=== PATIENT | female | born 1935 | race African-American/Black ===

== ENCOUNTER 2016-06-10 17:10 | Emergency (ER) | payer OTHER, MEDICAID ==
[~2016-06-10] VITALS: Ht 167.6 cm; Wt 55.0 kg
[~2016-06-10 17:10] MED LIST: ASPI-1035
[2016-06-10 17:43] VITALS: BP 136/79
== END 2016-06-10 19:03 | disposition home or self-care (01) ==
LOC: ER 17:11
DX: R03.0 Elevated blood-pressure reading, without diagnosis of hypertension (principal); F03.90 Unspecified dementia, unspecified severity, without behavioral disturbance, psychotic disturbance, mood disturbance, and anxiety; I10 Essential (primary) hypertension; Z79.82 Long term (current) use of aspirin
CPT/HCPCS: 99283

== ENCOUNTER 2021-05-24 10:54 | Emergency (ER) | payer OTHER, MEDICAID ==
[~2021-05-24] VITALS: Ht 165.1 cm; Wt 60.0 kg
[2021-05-24] MEDS ORDERED: ASPIRIN 81MG TABLET PO ONE (12:00)
[2021-05-24 12:33] LABS: EOSINOPHILS % 1.9 % (0.0-5.0); HEMOGLOBIN. 11.4 g/dL (12.0-16.0); MEAN CORPUSCULAR HEMOGLOBIN 29.8 pg (28.0-32.0); MEAN CORPUSCULAR VOLUME 88.8 fL (81.0-99.0); MONOCYTES % 11.4 % (2.0-8.0); NEUTROPHILS % 67.7 % (40.0-76.0); PLATELET 190 x1000/uL (130-400); RED BLOOD CELL COUNT 3.83 mill/uL (4.2-5.4); RED CELL DISTRIBUTION WIDTH 13.8 % (11.6-14.6)
[2021-05-24 12:41] LABS: CHLORIDE 106 mEq/L (98-107)
[2021-05-24] MEDS ORDERED: HALOPERIDOL LACTATE 5MG/ML VIAL IM ONE (16:45)
[2021-05-24 19:18] VITALS: BP 142/74
== END 2021-05-24 19:19 | disposition short-term general hospital (02) ==
LOC: ER 11:05 → CANBEDREQ 20:45
DX: R55 Syncope and collapse (principal); S09.8XXA Other specified injuries of head, initial encounter; X58.XXXA Exposure to other specified factors, initial encounter; Y93.89 Activity, other specified; Y92.9 Unspecified place or not applicable; E78.5 Hyperlipidemia, unspecified; I10 Essential (primary) hypertension; F03.90 Unspecified dementia, unspecified severity, without behavioral disturbance, psychotic disturbance, mood disturbance, and anxiety; R94.31 Abnormal electrocardiogram [ECG] [EKG]; Z82.49 Family history of ischemic heart disease and other diseases of the circulatory system; Z20.822 Contact with and (suspected) exposure to COVID-19
CPT/HCPCS: 36415; 70450; 71045; 72125; 80053; 80061; 83880; 84484; 85025; 87426; 93005; 96372; 99285; J1630

== ENCOUNTER 2022-03-02 06:55 | Inpatient (IN) | payer OTHER, MEDICAID ==
[~2022-03-02] VITALS: Ht 152.4 cm; Wt 44.1 kg
[2022-03-02] MEDS ORDERED: ACETAMINOPHEN 325MG TABLET PO STA (07:04)
[2022-03-02] MEDS ORDERED: ONDANSETRON HCL 4MG/2ML INJ IV ONE (07:15)
[2022-03-02] MEDS ORDERED: SODIUM CHLORIDE 0.9% 1,000 ML IV ONE (07:15)
[2022-03-02 08:32] LABS: HEMATOCRIT. 32.4 % (36.0-48.0); MEAN CORPUSCULAR HEMOGLOBIN 29.6 pg (28.0-32.0); MEAN CORPUSCULAR VOLUME 87.1 fL (81.0-99.0); MEAN PLATELET VOLUME 7.7 fl (7.4-10.4); PLATELET 222 x1000/uL (130-400); RED BLOOD CELL COUNT 3.72 mill/uL (4.2-5.4); RED CELL DISTRIBUTION WIDTH 14.4 % (11.6-14.6)
[2022-03-02 08:40] LABS: CHLORIDE 99 mEq/L (98-107)
[2022-03-02] MEDS ORDERED: POTASSIUM CHLORIDE 20MEQ TABLET SR PO NR (09:15)
[2022-03-02] MEDS ORDERED: SODIUM CHLORIDE 0.9% 1000ML BAG (SEPSIS BOLUS) IV ONE (09:15)
[2022-03-02] MEDS ORDERED: PIPERACILLIN/TAZ 3.375G PREMIX 50 ML IV NR (09:15)
[2022-03-02 10:17] LABS: PLATELET ESTIMATE NORMAL
[2022-03-02] MEDS ORDERED: POTASSIUM CHLORIDE 20MEQ/PACKET PO ONE (10:45)
[2022-03-02 12:44] LABS: INR 1.2; PROTHROMBIN TIME 12.4 sec (9.6-11.0)
[2022-03-02 13:18] LABS: CLARITY URINE CLEAR (CLEAR); COLOR URINE YELLOW (YELLOW); KETONES URINE NEGATIVE (NEGATIVE); LEUKOCYTE ESTERASE URINE 2+ (NEGATIVE); NITRITE URINE POSITIVE (NEGATIVE); OCCULT BLOOD URINE 2+ (NEGATIVE); PROTEIN URINE TRACE (NEGATIVE); SPECIFIC GRAVITY URINE 1.009 (1.005-1.030)
[2022-03-02] MEDS ORDERED: ONDANSETRON HCL 4MG/2ML INJ IV PRN (17:45)
[2022-03-02] MEDS ORDERED: ACETAMINOPHEN 325MG TABLET PO PRN (17:45)
[2022-03-02] MEDS: CEFTRIAXONE 1 G PREMIX 50 ML IV SCH ×2 (18:36→19:31)
[2022-03-02] MEDS ORDERED: IOHEXOL-300 100 ML BOTTLE ONE (18:51)
[2022-03-02 21:00] VITALS: BP 100/58
[2022-03-03] VITALS: BP 108/73
[2022-03-03 04:00] VITALS: BP 115/61
[2022-03-03] MEDS ORDERED: ONDANSETRON HCL 4MG TABLET PO PRN (04:30)
[2022-03-03] MEDS ORDERED: SODIUM CHL 0.45% + KCL 20MEQ/L 1,000 ML IV SCH (04:30)
[2022-03-03 07:09] LABS: HEMATOCRIT. 30.6 % (36.0-48.0); HEMOGLOBIN. 10.2 g/dL (12.0-16.0); MEAN CORPUSCULAR HEMOGLOBIN 28.5 pg (28.0-32.0); MEAN CORPUSCULAR VOLUME 85.8 fL (81.0-99.0); MEAN PLATELET VOLUME 7.9 fl (7.4-10.4); PLATELET 219 x1000/uL (130-400); RED BLOOD CELL COUNT 3.57 mill/uL (4.2-5.4); RED CELL DISTRIBUTION WIDTH 14.5 % (11.6-14.6)
[2022-03-03 07:22] LABS: CHLORIDE 98 mEq/L (98-107)
[2022-03-03 08:00] VITALS: BP 118/65
[2022-03-03] MEDS: PANTOPRAZOLE 40MG DR TABLET PO SCH (08:43)
[2022-03-03] MEDS: ENOXAPARIN 30MG/0.3ML SYR SUBCUT SCH (08:43)
[2022-03-03] MEDS ORDERED: PIPERACILLIN/TAZOBACTAM 3.375 G in DEXTROSE 5% WATER 50 ML IV NR (10:00)
[2022-03-03 12:00] VITALS: BP 112/72
[2022-03-03] MEDS ORDERED: POTASSIUM CHLORIDE INJ 40 MEQ in DEXT 5% WATER 500 ML IV NR (13:00)
[2022-03-03] MEDS: PIPERACILLIN/TAZOBACTAM 3.375 G in DEXTROSE 5% WATER 50 ML IV SCH ×2 (15:13→20:50)
[2022-03-03 16:00] VITALS: BP 125/70
[2022-03-03 20:00] VITALS: BP 97/63
[2022-03-04] VITALS: BP 103/61
[2022-03-04 04:00] VITALS: BP 103/64
[2022-03-04] MEDS: DEXT 5%/0.45% NACL 1000ML 1,000 ML IV SCH ×2 (04:26→17:30)
[2022-03-04] MEDS: PIPERACILLIN/TAZOBACTAM 3.375 G in DEXTROSE 5% WATER 50 ML IV SCH ×3 (05:53→22:49)
[2022-03-04 07:05] LABS: CHLORIDE 105 mEq/L (98-107)
[2022-03-04 07:35] LABS: HEMATOCRIT. 32.4 % (36.0-48.0); HEMOGLOBIN. 10.9 g/dL (12.0-16.0); MEAN CORPUSCULAR HEMOGLOBIN 28.9 pg (28.0-32.0); MEAN CORPUSCULAR VOLUME 86.3 fL (81.0-99.0); MEAN PLATELET VOLUME 8.1 fl (7.4-10.4); PLATELET 193 x1000/uL (130-400); RED BLOOD CELL COUNT 3.75 mill/uL (4.2-5.4); RED CELL DISTRIBUTION WIDTH 14.2 % (11.6-14.6)
[2022-03-04 08:00] VITALS: BP 118/73
[2022-03-04] MEDS: PANTOPRAZOLE 40MG DR TABLET PO SCH (08:53)
[2022-03-04] MEDS: ENOXAPARIN 30MG/0.3ML SYR SUBCUT SCH (08:56)
[2022-03-04 12:00] VITALS: BP 118/63
[2022-03-04 16:00] VITALS: BP 133/80
[2022-03-04 17:34] LABS: PLATELET ESTIMATE NORMAL
[2022-03-04 20:00] VITALS: BP 134/80
[2022-03-05] VITALS: BP 110/76
[2022-03-05] MEDS: DEXT 5%/0.45% NACL 1000ML 1,000 ML IV SCH (00:23)
[2022-03-05 04:00] VITALS: BP 143/92
[2022-03-05] MEDS: PIPERACILLIN/TAZOBACTAM 3.375 G in DEXTROSE 5% WATER 50 ML IV SCH (06:39)
[2022-03-05 06:46] LABS: HEMATOCRIT. 34.6 % (36.0-48.0); HEMOGLOBIN. 11.7 g/dL (12.0-16.0); MEAN CORPUSCULAR HEMOGLOBIN 29.1 pg (28.0-32.0); MEAN CORPUSCULAR VOLUME 86.3 fL (81.0-99.0); MEAN PLATELET VOLUME 7.9 fl (7.4-10.4); PLATELET 225 x1000/uL (130-400); RED BLOOD CELL COUNT 4.01 mill/uL (4.2-5.4); RED CELL DISTRIBUTION WIDTH 14.1 % (11.6-14.6)
[2022-03-05 06:50] LABS: CHLORIDE 100 mEq/L (98-107)
[2022-03-05] MEDS ORDERED: FAMOTIDINE 20MG TABLET PO SCH (07:10)
[2022-03-05 08:00] VITALS: BP 116/68
[2022-03-05] MEDS: ENOXAPARIN 30MG/0.3ML SYR SUBCUT SCH (09:47)
[2022-03-05] MEDS ORDERED: LEVOFLOXACIN 500MG TABLET PO NR (11:00)
[2022-03-05 12:00] VITALS: BP 141/84
[2022-03-05] MEDS ORDERED: LACTULOSE 20G/30ML UDC PO NR (12:15)
[2022-03-05 12:33] VITALS: BP 141/84
[2022-03-05 14:37] LABS: PLATELET ESTIMATE NORMAL
[2022-03-05 14:58] LABS: PLATELET ESTIMATE NORMAL
[2022-03-06] MEDS ORDERED: LEVOFLOXACIN 250MG TABLET PO SCH (11:00)
== END 2022-03-05 12:30 | DRG 871 ==
LOC: ER 07:03 → 8WST 12:44 → EDBEDREQ 12:46 → EDBEDREQTM 12:46 → ENRESERV 19:21
PROVIDERS: ADMIT Internal Medicine; ATTEND Internal Medicine
DX: A41.9 Sepsis, unspecified organism (principal); G93.41 Metabolic encephalopathy; J69.0 Pneumonitis due to inhalation of food and vomit; E87.20 Acidosis, unspecified; R47.01 Aphasia; N20.2 Calculus of kidney with calculus of ureter; N39.0 Urinary tract infection, site not specified; E87.6 Hypokalemia; Z20.822 Contact with and (suspected) exposure to COVID-19; Z66 Do not resuscitate; R65.20 Severe sepsis without septic shock; D16.9 Benign neoplasm of bone and articular cartilage, unspecified; E78.5 Hyperlipidemia, unspecified; I10 Essential (primary) hypertension; F03.90 Unspecified dementia, unspecified severity, without behavioral disturbance, psychotic disturbance, mood disturbance, and anxiety
CPT/HCPCS: 36415; 71045; 74176; 74177; 80048; 80053; 81003; 83605; 84145; 84484; 85025; 87426; 93005; 99291; C1893; C9803; J0696; J1650; J2405; J2543; J3480; J7030; J7060; Q9967; A4315

== ENCOUNTER 2023-09-13 19:57 | Emergency (ER) | payer OTHER, MEDICAID ==
[~2023-09-13] VITALS: Ht 170.2 cm; Wt 55.0 kg
[2023-09-13 20:07] VITALS: O2SAT 98
[2023-09-13] MEDS: ASPIRIN 81MG TABLET PO ONE (21:09)
[2023-09-13] MEDS: SODIUM CHLORIDE 0.9% 1,000 ML IV ONE (21:39)
[2023-09-13 22:11] LABS: CHLORIDE 102 mEq/L (98-107); POTASSIUM 3.5 mEq/L (3.5-5.1); SODIUM 137 mEq/L (136-145)
[2023-09-13 22:12] LABS: CALCIUM 8.9 mg/dL (8.7-10.4); CARBON DIOXIDE 28 mEq/L (21-32); HEMATOCRIT. 27.3 % (36.0-48.0); HEMOGLOBIN. 8.5 g/dL (12.0-16.0); MEAN CORPUSCULAR HEMOGLOBIN 22.8 pg (28.0-32.0); MEAN CORPUSCULAR HGB CONC 31.1 g/dL (31.0-37.0); MEAN CORPUSCULAR VOLUME 73.3 fL (81.0-99.0); MEAN PLATELET VOLUME 7.7 fl (7.4-10.4); PLATELET 273 x1000/uL (130-400); RED BLOOD CELL COUNT 3.72 mill/uL (4.2-5.4); RED CELL DISTRIBUTION WIDTH 18.1 % (11.6-14.6); WHITE BLOOD COUNT 8.1 x1000/uL (4.5-11.0)
[2023-09-13 22:13] LABS: DIFFERENTIAL COMMENT 1
[2023-09-13 22:17] LABS: CREATININE 0.8 mg/dL (0.6-1.0); GLUCOSE 166 mg/dL (70-105); UREA NITROGEN BLOOD 18 mg/dL (9-23)
[2023-09-13 22:19] LABS: ETHANOL BLOOD < 10 mg/dL (<10)
[2023-09-13 22:20] LABS: AMMONIA < 17 uMol/L (<32)
[2023-09-13 22:21] LABS: TROPONIN I HIGH SENSITIVITY < 4 ng/L (3.0-34)
[2023-09-13 22:39] LABS: PLATELET ESTIMATE NORMAL
[2023-09-13 22:40] LABS: ANISOCYTOSIS 1+; HYPOCHROMASIA 1+; MICROCYTOSIS 2+
[2023-09-14 01:30] LABS: TROPONIN I HIGH SENSITIVITY < 4 ng/L (3.0-34)
[2023-09-14 02:44] VITALS: BP 109/81; PULSE 99; RESP 20; TEMP 98.2
== END 2023-09-14 03:00 | disposition short-term general hospital (02) ==
LOC: ER 19:57
DX: G93.40 Encephalopathy, unspecified (principal); R41.82 Altered mental status, unspecified; F03.90 Unspecified dementia, unspecified severity, without behavioral disturbance, psychotic disturbance, mood disturbance, and anxiety; I10 Essential (primary) hypertension
CPT/HCPCS: 80048; 80320; 82140; 82962; 83880; 83605; 83690; 85025; 87040; 84484 ×2; 36415; 84145; 71045; 70450; 93005; 96360; 99285; J7030; G0480